=== PATIENT | female | born 1970 | race African-American/Black ===

== ENCOUNTER 2024-03-01 05:22 | Emergency (ER) | payer OTHER ==
[~2024-03-01] VITALS: Ht 167.6 cm; Wt 81.8 kg
[2024-03-01 06:10] LABS: BASO # 0.1 10^3/uL (0.0-0.2); BASO % 0.8 % (0.0-1.0); EOS # 0.1 10^3/uL (0.0-0.5); EOS % 1.3 % (0.0-3.0); HEMATOCRIT 38.6 % (36.0-47.0); HEMOGLOBIN 12.6 g/dl (12.0-15.5); LYMPH # 3.4 10^3/uL (1.5-5.0); LYMPH % 30.9 % (24.0-44.0); MEAN CORPUSCULAR HEMOGLOBIN 30.4 pg (27.0-33.0); MEAN CORPUSCULAR HGB CONC 32.6 g/dl (32.0-36.5); MONO # 0.5 10^3/uL (0.0-0.8); MONO % 4.8 % (2.0-8.0); NEUTROPHILS # 6.9 10^3/uL (1.5-8.5); NEUTROPHILS % 61.9 % (36.0-66.0); PLATELET COUNT, AUTOMATED 268 10^3/uL (150-450); RED BLOOD COUNT 4.15 10^6/uL (4.00-5.40); WHITE BLOOD COUNT 11.1 10^3/uL (4.0-10.0)
[2024-03-01 06:32] LABS: LIPASE 31 U/L (12-53)
[2024-03-01 06:33] LABS: ETHYL ALCOHOL (ETHANOL) 0.275 % (0.000-0.010)
[2024-03-01 06:35] LABS: ALBUMIN 3.6 G/DL (3.2-5.2); ALKALINE PHOSPHATASE 52 U/L (35-104); ALT/SGPT < 9 U/L (7.0-40); AMYLASE 83 U/L (30-118); AST/SGOT 21 U/L (<34); BILIRUBIN,DIRECT < 0.1 MG/DL (<0.4); BILIRUBIN,TOTAL 0.2 MG/DL (0.3-1.2); BLOOD UREA NITROGEN 9 MG/DL (9-23); CALCIUM LEVEL 8.4 MG/DL (8.5-10.1); CARBON DIOXIDE LEVEL 25 MMOL/L (20-31); CHLORIDE LEVEL 110 MMOL/L (98-107); CREATININE FOR GFR 1.04 MG/DL (0.55-1.30); GLOMERULAR FILTRATION RATE 59.2 (>51); GLUCOSE, FASTING 82 MG/DL (60-100); POTASSIUM SERUM 3.7 MMOL/L (3.5-5.1); SODIUM LEVEL 146 MMOL/L (136-145); TOTAL PROTEIN 6.4 G/DL (5.7-8.2)
[2024-03-01] MEDS: ONDANSETRON 4MG ORAL DISINTEGRATING TAB PO ONE (07:50)
[2024-03-01] MEDS: SUCRALFATE SUSP 1GM/10ML UD PO ONE (07:50)
[2024-03-01 09:02] VITALS: O2SAT 96
[2024-03-01 09:05] VITALS: BP 141/90
[2024-03-01 09:43] VITALS: TEMP 97.2
== END 2024-03-01 09:44 | disposition home or self-care (01) ==
LOC: EDBD 05:22 → M ED 05:22
DX: F10.129 Alcohol abuse with intoxication, unspecified (principal); K21.9 Gastro-esophageal reflux disease without esophagitis; I10 Essential (primary) hypertension; J45.909 Unspecified asthma, uncomplicated; F17.200 Nicotine dependence, unspecified, uncomplicated

== ENCOUNTER 2024-03-18 09:34 | Emergency (ER) | payer OTHER ==
[~2024-03-18] VITALS: Ht 167.6 cm; Wt 81.7 kg
[2024-03-18] MEDS ORDERED: AMLO25TA PO (11:38)
[2024-03-18] MEDS ORDERED: CERTRIZINE (11:38)
[2024-03-18] MEDS ORDERED: ARIP1TAB6 PO (11:38)
[2024-03-18] MEDS ORDERED: INDO-16 PO (11:38)
[2024-03-18] MEDS: KETOROLAC 30 MG/ML 1ML VIAL IM ONE (14:08)
[2024-03-18] MEDS ORDERED: CYCL-707 PO (14:22)
[2024-03-18] MEDS ORDERED: IBUP80TA PO (14:22)
[2024-03-18 14:28] VITALS: BP 133/94; TEMP 98.7; O2SAT 98
== END 2024-03-18 14:32 | disposition home or self-care (01) ==
LOC: M ED 09:34
DX: M25.511 Pain in right shoulder (principal); M25.512 Pain in left shoulder; I10 Essential (primary) hypertension; F43.10 Post-traumatic stress disorder, unspecified; F31.9 Bipolar disorder, unspecified; F90.9 Attention-deficit hyperactivity disorder, unspecified type; Z79.899 Other long term (current) drug therapy
CPT/HCPCS: 96372; 99283; J1885

== ENCOUNTER 2024-04-06 17:25 | Emergency (ER) | payer OTHER ==
[~2024-04-06] VITALS: Ht 167.6 cm; Wt 85.4 kg
[~2024-04-06 17:25] MED LIST: AMLO25TA PO; ARIP1TAB6 PO; CERTRIZINE; CYCL-707 PO; IBUP80TA PO; INDO-16 PO
[2024-04-06] MEDS: AUGMENTIN 875 MG TAB PO ONE (19:36)
[2024-04-06] MEDS ORDERED: AMOX875T2 PO (19:41)
[2024-04-06 20:33] VITALS: BP 131/70; TEMP 97.9; O2SAT 99
== END 2024-04-06 20:42 | disposition home or self-care (01) ==
LOC: M ED 17:25
DX: K02.9 Dental caries, unspecified (principal); I10 Essential (primary) hypertension; J45.909 Unspecified asthma, uncomplicated; F17.200 Nicotine dependence, unspecified, uncomplicated; Z79.899 Other long term (current) drug therapy

== ENCOUNTER 2024-06-24 15:32 | Emergency (ER) | payer MEDICAID, OTHER ==
[~2024-06-24] VITALS: Ht 167.6 cm; Wt 85.5 kg
[~2024-06-24 15:32] MED LIST changes: +AMOX875T2 PO
[2024-06-24 15:35] VITALS: BP 132/84; TEMP 96.3; O2SAT 100
[2024-06-24] MEDS: AUGMENTIN 875 MG TAB PO ONE (19:35)
[2024-06-24] MEDS ORDERED: AMLO25TA PO (19:39)
[2024-06-24] MEDS ORDERED: ARIP1TAB6 PO (19:39)
[2024-06-24] MEDS ORDERED: AMOX875T2 PO (19:39)
== END 2024-06-24 19:48 | disposition home or self-care (01) ==
LOC: M ED 15:32
DX: S86.211A Strain of muscle(s) and tendon(s) of anterior muscle group at lower leg level, right leg, initial encounter (principal); X58.XXXA Exposure to other specified factors, initial encounter; Y92.9 Unspecified place or not applicable; Y93.9 Activity, unspecified; Y99.9 Unspecified external cause status; K02.9 Dental caries, unspecified; Z76.0 Encounter for issue of repeat prescription; Z79.899 Other long term (current) drug therapy

== ENCOUNTER 2024-09-04 13:08 | Observation (INO) | payer MEDICAID, OTHER ==
[~2024-09-04] VITALS: Ht 167.6 cm; Wt 85.5 kg
[~2024-09-04 13:08] MED LIST changes: +HYDR-3713 PO
[2024-09-04] MEDS ORDERED: ISOVUE-370 76% 100 ML VIAL As Ordered ONE (14:01)
[2024-09-04 14:15] LABS: BASO # 0.1 10^3/uL (0.0-0.2); BASO % 0.8 % (0.0-1.0); EOS # 0.1 10^3/uL (0.0-0.5); EOS % 1.3 % (0.0-3.0); LYMPH # 1.7 10^3/uL (1.5-5.0); LYMPH % 28.1 % (24.0-44.0); MONO # 0.4 10^3/uL (0.0-0.8); MONO % 6.6 % (2.0-8.0); NEUTROPHILS # 3.8 10^3/uL (1.5-8.5); NEUTROPHILS % 63.0 % (36.0-66.0); PLATELET COUNT, AUTOMATED 160 10^3/uL (150-450)
[2024-09-04 14:28] LABS: INR 0.89; OSMOLALITY SERUM 300 MOSM/KG (275-295)
[2024-09-04 14:33] LABS: ETHYL ALCOHOL (ETHANOL) < 0.003 % (0.000-0.010)
[2024-09-04 14:34] LABS: SALICYLATE LEVEL < 3.0 MG/DL (<30)
[2024-09-04 14:35] LABS: ALT/SGPT 11 U/L (7.0-40); AST/SGOT 19 U/L (<34); CALCIUM LEVEL 9.0 MG/DL (8.5-10.1); CARBON DIOXIDE LEVEL 29.0 MMOL/L (20-31); CHLORIDE LEVEL 104.0 MMOL/L (98-107); CREATININE FOR GFR 0.89 MG/DL (0.55-1.30); GLOMERULAR FILTRATION RATE 77.5 (>51); POTASSIUM SERUM 3.8 MMOL/L (3.5-5.1); SODIUM LEVEL 142.0 MMOL/L (136-145)
[2024-09-04] MEDS ORDERED: MOM 30 ML SUSPENSION UDC PO PRN (16:15)
[2024-09-04] MEDS: ATORVASTATIN 20 MG TAB PO ONE (17:02)
[2024-09-04] MEDS: ASPIRIN 81 MG CHEWABLE TABLET PO ONE (17:02)
[2024-09-04 17:09] LABS: CHOLESTEROL LEVEL 235.0 MG/DL (<200); CHOLESTEROL RISK RATIO 2.92 (<5); LDL CHOLESTEROL 137.3 MG/DL (<100); NON-HDL-C 154.7 MG/DL; TRIGLYCERIDES LEVEL 87.0 MG/DL (<150)
[2024-09-04 17:12] LABS: FREE T4 1.25 NG/DL (0.89-1.76)
[2024-09-04 17:21] LABS: ESTIMATED AVERAGE GLUCOSE 108.0 MG/DL (60-110)
[2024-09-04] MEDS ORDERED: CETI10TA4 PO (17:34)
[2024-09-04] MEDS ORDERED: LOSA25TA13 PO (17:34)
[2024-09-04] MEDS ORDERED: TRAZ-252 PO (17:34)
[2024-09-04] MEDS ORDERED: HOME MED LIST COMPLETE! XX SCH (17:35)
[2024-09-04] MEDS ORDERED: traZODone 25MG PER 1/2 TABLET PO PRN (19:05)
[2024-09-04 20:25] VITALS: BP 121/72; TEMP 97.3; O2SAT 99
[2024-09-04] MEDS: DOCUSATE SODIUM 100 MG CAPSULE PO SCH (20:43)
[2024-09-04] MEDS: AUGMENTIN 875 MG TAB PO SCH (20:44)
[2024-09-04] MEDS: amLODIPine 5 MG TAB PO SCH (20:44)
[2024-09-04] MEDS: ACETAMINOPHEN 325 MG TAB PO PRN (20:46)
[2024-09-04 23:00] VITALS: BP 110/67; TEMP 97.6; O2SAT 100
[2024-09-05 03:00] VITALS: BP 155/92; TEMP 97.4; O2SAT 100
[2024-09-05 05:21] LABS: BASO # 0.1 10^3/uL (0.0-0.2); BASO % 0.9 % (0.0-1.0); EOS # 0.2 10^3/uL (0.0-0.5); EOS % 3.4 % (0.0-3.0); LYMPH # 2.0 10^3/uL (1.5-5.0); LYMPH % 35.3 % (24.0-44.0); MONO # 0.4 10^3/uL (0.0-0.8); MONO % 7.6 % (2.0-8.0); NEUTROPHILS # 2.9 10^3/uL (1.5-8.5); NEUTROPHILS % 52.6 % (36.0-66.0); PLATELET COUNT, AUTOMATED 164 10^3/uL (150-450)
[2024-09-05 05:46] LABS: CALCIUM LEVEL 9.1 MG/DL (8.5-10.1); CARBON DIOXIDE LEVEL 26.0 MMOL/L (20-31); CHLORIDE LEVEL 104.0 MMOL/L (98-107); CREATININE FOR GFR 0.87 MG/DL (0.55-1.30); GLOMERULAR FILTRATION RATE 79.6 (>51); MAGNESIUM LEVEL 1.7 MG/DL (1.8-2.4); POTASSIUM SERUM 3.6 MMOL/L (3.5-5.1); SODIUM LEVEL 141.0 MMOL/L (136-145)
[2024-09-05 08:00] VITALS: BP 130/79; TEMP 97.7; O2SAT 100
[2024-09-05] MEDS: MAG SULF 1GM/100ML (MAG RUN) 1 GM in IV 1 EA IV ONE (09:22)
[2024-09-05] MEDS: ENOXAPARIN 40 MG/0.4 ML SYRINGE (J1650 PER 10MG) SC SCH (09:23)
[2024-09-05] MEDS: ASPIRIN 81 MG ENTERIC TABLET PO SCH (09:23)
[2024-09-05] MEDS: ATORVASTATIN 20 MG TAB PO SCH (09:24)
[2024-09-05 09:25] VITALS: BP 130/79
[2024-09-05] MEDS: CETIRIZINE 10 MG TAB PO SCH (09:25)
[2024-09-05 12:20] VITALS: BP 143/93; TEMP 97.9; O2SAT 100
[2024-09-05 15:59] VITALS: BP 124/72; TEMP 97.4; O2SAT 100
[2024-09-05] MEDS ORDERED: AMOX875T2 PO (17:14)
[2024-09-05] MEDS ORDERED: ATOR40TA75 PO (17:14)
[2024-09-05] MEDS ORDERED: ASPI81TAEC PO (17:14)
[2024-09-05] MEDS ORDERED: AMLO1TAB24 PO (17:14)
== END 2024-09-05 18:01 | disposition home or self-care (01) ==
LOC: M ED 13:08 → M ED INP 16:11 → INTOOBSV 16:11 → M PCU 20:27
PROVIDERS: ADMIT Internal Medicine; ATTEND Internal Medicine
DX: R53.1 Weakness (principal); R20.0 Anesthesia of skin; R20.2 Paresthesia of skin; R51.9 Headache, unspecified; M50.123 Cervical disc disorder at C6-C7 level with radiculopathy; E83.42 Hypomagnesemia; I10 Essential (primary) hypertension; K04.7 Periapical abscess without sinus; M25.511 Pain in right shoulder; M25.512 Pain in left shoulder; M17.0 Bilateral primary osteoarthritis of knee; F31.9 Bipolar disorder, unspecified; F43.10 Post-traumatic stress disorder, unspecified; G47.00 Insomnia, unspecified; J45.909 Unspecified asthma, uncomplicated; E04.1 Nontoxic single thyroid nodule; Z86.39 Personal history of other endocrine, nutritional and metabolic disease; Z87.39 Personal history of other diseases of the musculoskeletal system and connective tissue; Z79.899 Other long term (current) drug therapy; Z79.2 Long term (current) use of antibiotics; F17.210 Nicotine dependence, cigarettes, uncomplicated
CPT/HCPCS: 36415; 70450; 70496; 70498; 70544; 70551; 71045; 72141; 80047; 80048; 80061; 80076; 80143; 82077; 82140; 83036; 83735; 83930; 84439; 84443; 85025; 85610; 85730; 93005; 93041; 93306; 94760; 96372; 96374; 97161; 99285; J1650; J3475; Q9967

== ENCOUNTER → 2024-11-05 | Outpatient (CLI) | payer OTHER ==
[~2024-11-05] MED LIST changes: +AMLO1TAB24 PO; +ASPI81TAEC PO; +ATOR40TA75 PO; +CETI10TA4 PO; +LOSA25TA13 PO; +TRAZ-252 PO
== END ==
LOC: M SOG 07:16
PROVIDERS: ATTEND Neuromusculoskeletal Medicine, Sports Medicine
DX: M25.512 Pain in left shoulder (principal); M25.511 Pain in right shoulder

== ENCOUNTER 2024-11-08 07:02 | Outpatient (RCR) | payer OTHER | END 2024-11-09 | LOC: M PT 07:02 | PROVIDERS: ATTEND Internal Medicine | DX: M19.90 Unspecified osteoarthritis, unspecified site (principal) ==

== ENCOUNTER → 2024-11-26 | Outpatient (REF) | payer OTHER, MEDICAID ==
[2024-11-26 13:03] LABS: ALT/SGPT 10.0 U/L (7.0-40); AST/SGOT 17.0 U/L (<34); CALCIUM LEVEL 9.8 MG/DL (8.5-10.1); CARBON DIOXIDE LEVEL 26.0 MMOL/L (20-31); CHLORIDE LEVEL 103.0 MMOL/L (98-107); CHOLESTEROL LEVEL 265.0 MG/DL (<200); CHOLESTEROL RISK RATIO 3.01 (<5); CREATININE FOR GFR 0.89 MG/DL (0.55-1.30); GLOMERULAR FILTRATION RATE 77.5 (>51); LDL CHOLESTEROL 153.2 MG/DL (<100); NON-HDL-C 177.0 MG/DL; POTASSIUM SERUM 4.2 MMOL/L (3.5-5.1); SODIUM LEVEL 140.0 MMOL/L (136-145); TRIGLYCERIDES LEVEL 119.0 MG/DL (<150)
[2024-11-26 13:04] LABS: TOTAL 25(OH) VITAMIN D 19.8 NG/ML (20.0-100.0)
[2024-11-26 13:21] LABS: ESTIMATED AVERAGE GLUCOSE 120.0 MG/DL (60-110)
== END ==
LOC: M LAB REF 12:12
PROVIDERS: ATTEND Student in an Organized Health Care Education/Training Program
DX: E66.9 Obesity, unspecified (principal)